=== PATIENT | female | born 1990 | race Two or more races ===

== ENCOUNTER 2022-05-08 17:17 | Emergency (ER) | payer SELFPAY ==
[~2022-05-08] VITALS: Ht 170.2 cm; Wt 72.6 kg
[2022-05-08 17:39] VITALS: BP 144/84
--- NOTE | 2022-05-08 18:01 | NUR ---
ELOPED IN STABLE CONDITION, MD AGUILAR AWARE
== END 2022-05-08 18:02 | disposition left against medical advice (07) ==
LOC: ER 17:29
DX: S49.91XA Unspecified injury of right shoulder and upper arm, initial encounter (principal); M54.50 Low back pain, unspecified; W18.39XA Other fall on same level, initial encounter; Y93.89 Activity, other specified; Y92.89 Other specified places as the place of occurrence of the external cause; Y99.8 Other external cause status